=== PATIENT | female | born 1980 | race African-American/Black ===

== ENCOUNTER 2019-08-21 19:15 | Emergency (ER) | payer SELFPAY ==
[~2019-08-21] VITALS: Ht 149.9 cm; Wt 58.1 kg
--- NOTE | 2019-08-21 19:25 | NUR ---
ED Nurse Note: Ptient presents with complaints of flu-like symptoms, sore throat x 1 day. Patient denies nausea, vomitting and diarrhea. Patient reports pain of 10/10 in her throat and general body aches. Will continue to monitor.
[2019-08-21 19:26] VITALS: BP 115/67
[2019-08-21] MEDS ORDERED: Acetaminophen 500mg (ES) tab ORAL ONE (19:45)
--- NOTE | 2019-08-21 19:48 | Emergency Room Report ---
History of Present Illness General Chief Complaint: Fever Source: Patient Present Illness HPI 39-year-old female, presents with cough, congestion, sore throat, body aches x1 day, no aggravating leaving factors severity is moderate, constant, patient endorses a achy sore throat patient presents for evaluation. Patient with fever/chills no abdominal pain no nausea no vomiting no diarrhea Allergies: Coded Allergies: AZITHROMYCIN (Verified Allergy, Unknown, 08/21/19) Patient History Past Medical History: see triage record Now: No Reviewed Nursing Documentation: PMH: Agreed; PSxH: Agreed Nursing Documentation-PMH Past Medical History: No Stated History Review of Systems All Other Systems: negative except mentioned in HPI Physical Exam Vital Signs Date Time Temp Pulse Resp B/P (MAP) Pulse Ox O2 Delivery O2 Flow Rate FiO2 08/21/19 19:23 103.3 120 22 115/67 (83) 96 Room Air Sp02 EP Interpretation: reviewed, normal General Appearance: well appearing, no apparent distress, alert Head: normocephalic, atraumatic Eyes: bilateral eye PERRL, bilateral eye EOMI ENT: TMs + canals normal, uvula midline, dry mucus membranes, nasal congestion , pharyngeal erythema, other - No exudates Neck: supple, thyroid normal, supple/symm/no masses Respiratory: lungs clear, no respiratory distress, no retraction, no accessory muscle use Cardiovascular #1: normal peripheral pulses, no edema, no gallop, no murmur, tachycardia Gastrointestinal: non tender, soft, no guarding, no rebound Musculoskeletal: normal inspection Neurologic: alert, oriented x3 Psychiatric: mood/affect normal Skin: no rash, warm/dry Medical Decision Making Diagnostic Impression: Primary Impression: Viral syndrome Additional Impression: Pharyngitis with viral syndrome ER Course 39-year-old female presents with most likely a viral syndrome, differential diagnosis includes RPA, pharyngitis, viral syndrome, pneumonia Chest x-ray negative, influenza swab negative Symptomatic management Work note disposition home with return precautions Laboratory Tests Test 08/21/19 19:45 Urine HCG, Qualitative Negative (NEGATIVE) Microbiology Date/Time Source Procedure Growth Status 08/21/19 19:45 Nasal Nares - Final Complete 08/21/19 19:45 Nasal Nares - Final Complete Chest X-Ray Diagnostic Results Chest X-Ray Diagnostic Results : Chest X-Ray Ordered: Yes # of Views/Limited/Complete: 1 View Indication: Other - cough EP Interpretation: Yes Interpretation: no consolidation, no effusion, no pneumothorax, no acute cardiopulmonary disease Impression: No acute disease Electronically Signed by: Leander Davenport MD Last Vital Signs Date Time Temp Pulse Resp B/P (MAP) Pulse Ox O2 Delivery O2 Flow Rate FiO2 08/21/19 19:23 103.3 120 22 115/67 (83) 96 Room Air Disposition: HOME, SELF-CARE Condition: Stable Scripts No Active Prescriptions or Reported Meds Referrals: NOT CHOSEN IPA/,REFERRING (PCP) [facility] Departure Forms: Return to Work Return to Work Date: Aug 26, 2019 Patient Instructions: Fever, Adult, [id number], Pharyngitis, [id number], Sore Throat, [id number] Additional Instructions: The patient was provided with discharge instructions, notified to follow-up with a primary care doctor and or specialist in the next 24-48 hours, and to return to the ED if they have worsening of their symptoms. Please note that this report is being documented using [employer] technology. This can lead to erroneous entry secondary to incorrect interpretation by the dictating instrument. Leander Davenport MD Aug 21, 2019 19:48
--- NOTE | 2019-08-21 19:50 | NUR ---
ED Nurse Note: Patient tolerated medication administration well. Will continue to monitor fever.
--- NOTE | 2019-08-21 20:58 | NUR ---
ED Nurse Note: Patietn vital signs are stable, temperature has decreased along with heart rate. Will continue to monitor.
--- NOTE | 2019-08-21 21:03 | NUR ---
ED Nurse Note: Patient cleared for discharge by ERMD, patient verbalized understanding of discharge instructions, ID band removed. Patient is awake and alert x 4 and ambulatory with steady gait. Patient departed with all belongings, accompanied by mother.
[2019-08-21 21:05] VITALS: BP 115/67
--- NOTE | 2019-08-22 12:55 | Diagnostic Imaging Report ---
Indication: Cough Comparison: None A single view chest radiograph was obtained. Findings: Cardiomediastinal appearance is within normal limits for age. The lungs are clear. Pulmonary vascularity is appropriate. The diaphragmatic contour is smooth and costophrenic angles are sharp. No pleural effusions are identified. The bones are unremarkable. Impression: No acute findings
== END 2019-08-21 21:03 | disposition home or self-care (01) ==
LOC: EMR 19:33
DX: B34.9 Viral infection, unspecified (principal); J02.9 Acute pharyngitis, unspecified; Z88.1 Allergy status to other antibiotic agents
CPT/HCPCS: 71045; 81025; 86710; 99283; J8540